=== PATIENT | male | born 1995 | race Two or more races ===

== ENCOUNTER 2021-06-09 01:58 | Emergency (ER) | payer MEDICAID ==
[~2021-06-09] VITALS: Ht 172.7 cm; Wt 73.0 kg
[2021-06-09 04:06] LABS: BASOPHILS % 0.2 % (0.0-2.0); EOSINOPHILS % 0.1 % (0.0-5.0); HEMATOCRIT. 41.5 % (42.0-52.0); HEMOGLOBIN. 14.1 g/dL (14.0-18.0); LYMPHOCYTES % 12.9 % (20.0-50.0); MEAN CORPUSCULAR HEMOGLOBIN 31.5 pg (28.0-32.0); MEAN CORPUSCULAR VOLUME 92.5 fL (80.0-94.0); MEAN PLATELET VOLUME 8.6 fl (7.4-10.4); MONOCYTES % 8.3 % (2.0-8.0); NEUTROPHILS % 78.5 % (40.0-76.0); PLATELET 264 x1000/uL (130-400); RED BLOOD CELL COUNT 4.49 mill/uL (4.7-6.1); RED CELL DISTRIBUTION WIDTH 12.6 % (11.6-14.6)
[2021-06-09 04:11] LABS: CHLORIDE 101 mEq/L (98-107)
[2021-06-09 04:16] LABS: ETHANOL BLOOD < 10 mg/dL
[2021-06-09] MEDS: ZIPRASIDONE HCL 20MG CAPSULE PO SCH ×2 (12:19→21:53)
[2021-06-10] MEDS ORDERED: OLANZAPINE 10 MG/VIAL IM ONE (01:30)
[2021-06-10] MEDS ORDERED: LORAZEPAM 2MG/ML CPJ IM ONE (05:15)
[2021-06-10] MEDS: ZIPRASIDONE HCL 20MG CAPSULE PO SCH ×2 (09:34→21:00)
[2021-06-11] MEDS ORDERED: ZIPRASIDONE HCL 40MG CAPSULE PO SCH (21:00)
[2021-06-11 22:42] VITALS: BP 134/85
== END 2021-06-11 23:08 ==
LOC: ER 01:58
DX: F30.2 Manic episode, severe with psychotic symptoms (principal); R45.1 Restlessness and agitation; Z20.822 Contact with and (suspected) exposure to COVID-19; D72.829 Elevated white blood cell count, unspecified; Z78.1 Physical restraint status; Z91.14 Patient's other noncompliance with medication regimen; Z75.1 Person awaiting admission to adequate facility elsewhere
CPT/HCPCS: 36415; 80053; 80307; 80320; 80329; 82962; 85025; 93005; 99285; C9803; J2060; J3490; U0003; U0005; G0480

== ENCOUNTER 2022-10-25 13:55 | Emergency (ER) | payer MEDICAID ==
[~2022-10-25] VITALS: Ht 172.7 cm; Wt 79.0 kg
[2022-10-25 14:23] VITALS: BP 141/80
[2022-10-25] MEDS ORDERED: OLOP5DRO25 EACHEYE (19:06)
[2022-10-25] MEDS ORDERED: P50 MT (19:07)
[2022-10-25] MEDS ORDERED: CLAR10 MT (19:08)
== END 2022-10-25 19:30 | disposition home or self-care (01) ==
LOC: ER 13:55
DX: R09.81 Nasal congestion (principal)
CPT/HCPCS: 99281